=== PATIENT | female | born 1955 | race Caucasian/White ===

== ENCOUNTER 2019-12-14 16:38 | Inpatient (IN) | payer MEDICAID ==
[~2019-12-14] VITALS: Ht 160 cm; Wt 56.8 kg
--- NOTE | 2019-12-14 16:51 | NUR ---
PT SITTING IN WR VISITING WITH S/O. SPEAKING FULL SENTENCES, DENIES CP, NAD NOTED
[2019-12-14] MEDS ORDERED: LASIX40 MG PO (16:53)
[2019-12-14] MEDS ORDERED: CHRONULAC30 ML PO (16:53)
[2019-12-14] MEDS ORDERED: MAG-OX 400 MG400 MG PO (16:59)
[2019-12-14] MEDS ORDERED: K-DUR20 MEQ PO (16:59)
[2019-12-14] MEDS ORDERED: PROTONIX40 MG PO (17:00)
[2019-12-14] MEDS ORDERED: OMEPRAZOLE20 M1 PO (17:00)
[2019-12-14] MEDS ORDERED: ALDACTONE100 MG PO (17:00)
[2019-12-14 17:34] LABS: APTT 36.2 SECONDS (22.8-39.4); CALC OSMOLALITY 271 mosm/kg (275-300); CALCIUM 8.2 mg/dL (8.5-10.1); CHLORIDE - SERUM 104 mmol/L (98-107); CREATININE - SERUM 1.1 mg/dL (0.6-1.3); GLUCOSE 130 mg/dL (74-106); INR 1.38 (0.85-1.17); POTASSIUM - SERUM 3.7 mmol/L (3.5-5.1); PROTIME 16.9 SECONDS (11.6-15.0); SODIUM 136 mmol/L (136-145); UREA NITROGEN 7 mg/dL (7-18); eGFR NON AFRICAN AMERICAN 53 mL/min (90-120)
[2019-12-14 17:38] LABS: BASOPHILS 0.5 % (0-2); EOSINOPHILS 1.6 % (0-7); IMMATURE GRANULOCYTES 0.2 % (0-5); LYMPHOCYTES 23.6 % (15-50); MCH 24.1 pg (26.0-34.0); MCV 77.7 fL (80.0-100.0); MEAN PLATELET VOLUME 8.8 fL (7.4-10.4); MONOCYTES 11.3 % (2-11); NEUTROPHILS 62.8 % (40-80); PLATELET COUNT 99 10x3/uL (130-400); RBC 3.73 10x6/uL (4.00-5.40); RDW 18.4 % (11.5-14.5); WBC 4.3 10x3/uL (4.8-10.8)
[2019-12-14 17:52] LABS: ALBUMIN 2.9 g/dL (3.4-5.0); ALKALINE PHOSPHATASE 125 U/L (30-120); ALT (SGPT) 16 U/L (10-68); CKMB 2.5 U/L (0.0-3.6); CREATINE KINASE 87 UL (21-215); PRO BNP 389 pg/mL (0-125); PROTEIN - SERUM 6.8 g/dL (6.4-8.2); TROPONIN-I < 0.017 ng/mL (0.000-0.060)
[2019-12-14 18:30] LABS: PLATELET ESTIMATE DECREASED
[2019-12-14 22:09] LABS: % SATURATION 8 % (15-55); IRON 20 ug/dl (35-150); TOTAL IRON BIND CAPACITY 247 ug/dl (260-445); UNSAT IRON BIND CAPACITY 227 ug/dl (150-375)
[2019-12-15] VITALS (18 sets, daily range): BP systolic 109–134; BP diastolic 48–78; Ht 160 cm; Wt 56.8 kg
[2019-12-15 07:02] LABS: BASOPHILS 0.7 % (0-2); EOSINOPHILS 3.3 % (0-7); HEMATOCRIT 24.7 % (36.0-48.0); HEMOGLOBIN 7.6 g/dL (12-16); LYMPHOCYTES 30.5 % (15-50); MCH 23.8 pg (26.0-34.0); MCHC 30.8 g/dL (31.0-37.0); MCV 77.2 fL (80.0-100.0); MEAN PLATELET VOLUME 8.8 fL (7.4-10.4); MONOCYTES 15.4 % (2-11); NEUTROPHILS 50.1 % (40-80); PLATELET COUNT 88 10x3/uL (130-400); RDW 18.5 % (11.5-14.5)
[2019-12-15 07:06] LABS: WBC 3.1 10x3/uL (4.8-10.8)
[2019-12-15 07:10] LABS: ALBUMIN 2.2 g/dL (3.4-5.0); ALKALINE PHOSPHATASE 94 U/L (30-120); ALT (SGPT) 13 U/L (10-68); BILIRUBIN - TOTAL 1.34 mg/dL (0.2-1.3); CALCIUM 8.1 mg/dL (8.5-10.1); CARBON DIOXIDE 25.3 mmol/L (21.0-32.0); CHLORIDE - SERUM 109 mmol/L (98-107); POTASSIUM - SERUM 3.7 mmol/L (3.5-5.1); PROTEIN - SERUM 5.4 g/dL (6.4-8.2); SODIUM 140 mmol/L (136-145); UREA NITROGEN 7 mg/dL (7-18)
[2019-12-15 07:13] LABS: CALC OSMOLALITY 274 mosm/kg (275-300); CREATININE - SERUM 0.8 mg/dL (0.6-1.3); GLUCOSE 66 mg/dL (74-106); eGFR NON AFRICAN AMERICAN 77 mL/min (90-120)
--- NOTE | 2019-12-15 07:30 | NUR ---
PATIENT RESTING ON RIGHT SIDE. SO IN ROOM. CL IN REACH. NO NEEDS AT THIS TIME. WCTM
--- NOTE | 2019-12-15 09:20 | NUR ---
PATIENT BACK FROM THORACENTESIS. 2200 ML OF FLUID OFF. 100 MCG OF FENTANYL GIVEN. DRESSING RIGHT MID FLANK CDI. VS STABLE. CL IN REACH. WCTM
--- NOTE | 2019-12-15 10:59 | NUR ---
PATIENT SITTING UP IN BED. NO NEEDS AT THIS TIME. TALKING ON PHONE. TM
[2019-12-15 13:47] LABS: EOS BF 1 %; MACROPHAGES BF 49 %; MESOTHELIALS BF 8 %; NEUT - BF 23 %
[2019-12-15 14:31] LABS: BILIRUBIN NEGATIVE (NEGATIVE); GLUCOSE NEGATIVE (NEGATIVE); KETONE NEGATIVE (NEGATIVE); NITRITE NEGATIVE (NEGATIVE); UROBILINOGEN NORMAL (NORMAL)
--- NOTE | 2019-12-15 20:00 | NUR ---
PATIENT RESTING IN BED WATCHING TV. NO S/S OF ACUTE DISTRESS. NO C/O AT THIS TIME. PATEINT HAS BLOOD RUNNING IN LEFT HAND IV. PATIENT HAS 2L OF O2 NASAL CANNULA THAT PATIENT WEARS PRN. PATIENT DOESN'T HAVE TELEMETRY BUT IS ON THE WAIT LIST. PATIENT USES THE BEDSIDE COMMODE. CALL LIGHT WITHIN REACH. WILL CONTINUE TO MONITOR.
--- NOTE | 2019-12-15 20:20 | NUR ---
PATIENT HAS UNRINATED. PATIENT REPORTS NO NAUSEA. PATIENT STATES "I'M A LITTLE SORE, BUT I KNOW I WAS JUST CUT ON." PATIENT VITALS ARE STABLE. PATIENT IV WAS TAKEN OUT, CATHETER TIP INTACT. CALL LIGHT WITHIN REACH. WILL CONTINUE TO MONITOR.
--- NOTE | 2019-12-15 23:50 | NUR ---
PATIENT BLOOD FINISHED. VITALS STABLE. NO S/S OF REACTION. IV FLSUHED AND SALINE LOC. CALL LIGHT WITHIN REACH. WILL CONTINUE TO MONITOR.
[2019-12-16] VITALS (11 sets, daily range): BP systolic 95–118; BP diastolic 45–70
--- NOTE | 2019-12-16 02:59 | NUR ---
I have reviewed this patient and I concur with the Shift Assessment completed by the Licensed Practical Nurse today this shift.
[2019-12-16 06:17] LABS: BASOPHILS 0.5 % (0-2); LYMPHOCYTES 29.1 % (15-50); MCH 25.5 pg (26.0-34.0); MCHC 32.7 g/dL (31.0-37.0); MCV 77.9 fL (80.0-100.0); MONOCYTES 13.2 % (2-11); NEUTROPHILS 55.2 % (40-80); PLATELET COUNT 77 10x3/uL (130-400); RDW 17.5 % (11.5-14.5)
[2019-12-16 06:19] LABS: HEMATOCRIT 33.9 % (36.0-48.0); HEMOGLOBIN 11.1 g/dL (12-16); RBC 4.35 10x6/uL (4.00-5.40)
[2019-12-16 06:27] LABS: INR 1.45 (0.85-1.17); PROTIME 17.5 SECONDS (11.6-15.0)
[2019-12-16 06:40] LABS: ALBUMIN 2.3 g/dL (3.4-5.0); ANION GAP 9.9 mmol/L (8-16); BILIRUBIN - TOTAL 2.3 mg/dL (0.2-1.3); CALCIUM 7.8 mg/dL (8.5-10.1); CARBON DIOXIDE 25.7 mmol/L (21.0-32.0); CREATININE - SERUM 0.9 mg/dL (0.6-1.3); MAGNESIUM - SERUM 1.5 mg/dL (1.8-2.4); POTASSIUM - SERUM 3.6 mmol/L (3.5-5.1); PROTEIN - SERUM 5.6 g/dL (6.4-8.2)
[2019-12-16 09:55] LABS: PLATELET ESTIMATE DECREASED
[2019-12-16 10:09] LABS: ROULEAUX OCC
[2019-12-16 15:11] LABS: ACID FAST SMEAR Negative (()); AFB SPECIMEN PROCESSING Not Indicated (())
--- NOTE | 2019-12-16 15:56 | NUR ---
PATIENT IS RESTING.SHE IS WITHOUT DISTRESS.MONITOR. AT BEDSIDE.
[2019-12-16 16:09] LABS: FUNGUS STAIN Final report (())
--- NOTE | 2019-12-16 20:00 | NUR ---
PATIENT RESTING IN BED TALKING ON THE PHONE. NO S/S OF ACUTE DISTRESS. NO C/O AT THIS TIME. PATIENT HAS 2L OF O2 NASAL CANNULA PRN. PATIENT HAS IV IN LEFT HAND, SALINE LOC. IV IS PATENT WITHOUT REDNESS, SWELLING, OR TENDERNESS. PATIENT HAD A THORENCENTESIS YESTERDAY AND A PARACENTESIS TODAY. PATIENT IS UP ADLIB TO THE BATHROOM. CALL LIGHT WITHIN REACH. WILL CONTINUE TO MONITOR.
[2019-12-17] VITALS: BP 114/55
--- NOTE | 2019-12-17 03:52 | NUR ---
I have reviewed this patient and I concur with the Shift Assessment completed by the Licensed Practical Nurse today this shift.
[2019-12-17 04:00] VITALS: BP 97/57
[2019-12-17 05:27] LABS: BASOPHILS 0.2 % (0-2); EOSINOPHILS 1.7 % (0-7); LYMPHOCYTES 18.6 % (15-50); MCH 25.3 pg (26.0-34.0); MCHC 32.4 g/dL (31.0-37.0); MCV 78.3 fL (80.0-100.0); MEAN PLATELET VOLUME 9.3 fL (7.4-10.4); MONOCYTES 14.6 % (2-11); NEUTROPHILS 64.9 % (40-80); PLATELET COUNT 84 10x3/uL (130-400); RBC 4.34 10x6/uL (4.00-5.40); RDW 18.2 % (11.5-14.5)
[2019-12-17 05:46] LABS: INR 1.42 (0.85-1.17); PROTIME 17.2 SECONDS (11.6-15.0)
[2019-12-17 05:55] LABS: ALBUMIN 2.9 g/dL (3.4-5.0); ANION GAP 9.7 mmol/L (8-16); BILIRUBIN - TOTAL 1.84 mg/dL (0.2-1.3); CALCIUM 8.2 mg/dL (8.5-10.1); CARBON DIOXIDE 29.5 mmol/L (21.0-32.0); CREATININE - SERUM 0.9 mg/dL (0.6-1.3); MAGNESIUM - SERUM 1.3 mg/dL (1.8-2.4); POTASSIUM - SERUM 3.2 mmol/L (3.5-5.1); PROTEIN - SERUM 6.1 g/dL (6.4-8.2)
--- NOTE | 2019-12-17 08:00 | NUR ---
ASSESSMENT PER FLOW SHEET. PATIENT IS WITHOUT DISTRESS.CALL LIGHT IN REACH
[2019-12-17 08:45] VITALS: BP 89/55
[2019-12-17] MEDS ORDERED: NICODERM CQ1 EAC3 TRANSDERM (10:38)
[2019-12-17] MEDS ORDERED: COMBIVENT RESPIM4 GM INH (11:15)
--- NOTE | 2019-12-17 12:15 | NUR ---
IV DCD WITH CATH TIP INTACT. DISCHARGE INSTRUCTIONS,STATES UNDERSTANDING.
--- NOTE | 2019-12-17 12:32 | NUR ---
LEFT UNIT VIA WHEELCHAIR FOR TRANSPORT HOME
== END 2019-12-17 12:32 | disposition home or self-care (01) | DRG 433 ==
LOC: D.ER 16:38 → D.MS 20:11
PROVIDERS: Family Medicine; Internal Medicine Pulmonary Disease; Radiology Diagnostic Radiology; ADMIT Family Medicine; ATTEND Family Medicine
PROC: 0W9G3ZZ Drainage of Peritoneal Cavity, Percutaneous Approach (ICD-10-PCS; principal; 2019-12-16 10:00)
DX: K70.31 Alcoholic cirrhosis of liver with ascites (principal); J91.8 Pleural effusion in other conditions classified elsewhere; D61.818 Other pancytopenia; J44.1 Chronic obstructive pulmonary disease with (acute) exacerbation; J98.11 Atelectasis; F17.213 Nicotine dependence, cigarettes, with withdrawal; J94.8 Other specified pleural conditions; I10 Essential (primary) hypertension; K21.9 Gastro-esophageal reflux disease without esophagitis; J30.9 Allergic rhinitis, unspecified; D50.9 Iron deficiency anemia, unspecified; K42.9 Umbilical hernia without obstruction or gangrene

== ENCOUNTER → 2019-12-26 08:40 | Outpatient (CLI) | payer MEDICAID ==
[2019-12-15 12:48] VITALS: BMI 22.5
[~2019-12-26 08:40] MED LIST: ALDACTONE100 MG PO; CHRONULAC30 ML PO; COMBIVENT RESPIM4 GM INH; K-DUR20 MEQ PO; LASIX40 MG PO; MAG-OX 400 MG400 MG PO; NICODERM CQ1 EAC3 TRANSDERM; OMEPRAZOLE20 M1 PO; PROTONIX40 MG PO
[2019-12-26 09:33] LABS: ALBUMIN 3.1 g/dL (3.4-5.0); ANION GAP 9.5 mmol/L (8-16); BILIRUBIN - TOTAL 1.08 mg/dL (0.2-1.3); CARBON DIOXIDE 27.4 mmol/L (21.0-32.0); CREATININE - SERUM 0.9 mg/dL (0.6-1.3); POTASSIUM - SERUM 3.9 mmol/L (3.5-5.1); PROTEIN - SERUM 7.4 g/dL (6.4-8.2)
[2019-12-26 09:44] LABS: BASOPHILS 0.7 % (0-2); EOSINOPHILS 3.2 % (0-7); HEMATOCRIT 37.9 % (36.0-48.0); HEMOGLOBIN 12.2 g/dL (12-16); LYMPHOCYTES 27.3 % (15-50); MCH 25.6 pg (26.0-34.0); MCHC 32.2 g/dL (31.0-37.0); MCV 79.5 fL (80.0-100.0); MEAN PLATELET VOLUME 9.3 fL (7.4-10.4); MONOCYTES 15.2 % (2-11); NEUTROPHILS 53.6 % (40-80); RBC 4.77 10x6/uL (4.00-5.40); RDW 20.5 % (11.5-14.5); WBC 4.1 10x3/uL (4.8-10.8)
[2019-12-26 09:45] LABS: PLATELET COUNT 136 10x3/uL (130-400)
[2019-12-26 09:47] LABS: INR 1.15 (0.85-1.17); PROTIME 14.6 SECONDS (11.6-15.0)
== END | disposition home or self-care (01) ==
LOC: D.LAB 08:40
PROVIDERS: ATTEND Radiology Diagnostic Radiology
DX: K74.60 Unspecified cirrhosis of liver (principal)

== ENCOUNTER 2020-01-27 09:58 | Day surgery (SDC) | payer MEDICAID ==
[~2020-01-27] VITALS: Ht 160 cm; Wt 50.8 kg
[2020-01-27] MEDS ORDERED: FLUTICASONE PRO16 GM NASAL (10:47)
[2020-01-27 10:53] VITALS: BP 117/70; Ht 160 cm; Wt 50.8 kg
[2020-01-27 11:01] LABS: APTT 32.5 SECONDS (22.8-39.4); BASOPHILS 0.5 % (0-2); EOSINOPHILS 1.6 % (0-7); HEMATOCRIT 33.8 % (36.0-48.0); INR 1.28 (0.85-1.17); LYMPHOCYTES 27.9 % (15-50); MCH 27.1 pg (26.0-34.0); MCHC 32.5 g/dL (31.0-37.0); MCV 83.3 fL (80.0-100.0); MONOCYTES 12.4 % (2-11); NEUTROPHILS 57.6 % (40-80); PLATELET COUNT 124 10x3/uL (130-400); PROTIME 15.9 SECONDS (11.6-15.0); RBC 4.06 10x6/uL (4.00-5.40); RDW 22.8 % (11.5-14.5); WBC 3.8 10x3/uL (4.8-10.8)
[2020-01-27 11:04] LABS: CALC OSMOLALITY 275 mosm/kg (275-300); CALCIUM 8.6 mg/dL (8.5-10.1); CARBON DIOXIDE 26.5 mmol/L (21.0-32.0); CHLORIDE - SERUM 105 mmol/L (98-107); CREATININE - SERUM 0.8 mg/dL (0.6-1.3); GLUCOSE 87 mg/dL (74-106); POTASSIUM - SERUM 4.2 mmol/L (3.5-5.1); SODIUM 139 mmol/L (136-145); UREA NITROGEN 11 mg/dL (7-18); eGFR NON AFRICAN AMERICAN 77 mL/min (90-120)
[2020-01-27 12:59] LABS: ALBUMIN 3.1 g/dL (3.4-5.0); BILIRUBIN - TOTAL 0.97 mg/dL (0.2-1.3)
--- NOTE | 2020-01-27 13:51 | NUR ---
1335 IV REMOVED AND PRESSURE HELD
== END 2020-01-27 13:43 | disposition home or self-care (01) ==
LOC: D.SP 09:58
PROVIDERS: ATTEND Radiology Diagnostic Radiology
DX: K74.60 Unspecified cirrhosis of liver (principal); R18.8 Other ascites; Z53.8 Procedure and treatment not carried out for other reasons

== ENCOUNTER 2020-02-23 11:40 | Inpatient (IN) | payer MEDICAID ==
[~2020-02-23] VITALS: Ht 160 cm; Wt 49.9 kg
[~2020-02-23 11:40] MED LIST changes: +FLUTICASONE PRO16 GM NASAL
[2020-02-23 12:29] LABS: BASOPHILS 0.4 % (0-2); EOSINOPHILS 0.2 % (0-7); HEMATOCRIT 31.5 % (36.0-48.0); HEMOGLOBIN 10.5 g/dL (12-16); IMMATURE GRANULOCYTES 0.2 % (0-5); LYMPHOCYTES 18.2 % (15-50); MCH 27.9 pg (26.0-34.0); MCHC 33.3 g/dL (31.0-37.0); MCV 83.6 fL (80.0-100.0); MEAN PLATELET VOLUME 8.6 fL (7.4-10.4); MONOCYTES 9.9 % (2-11); NEUTROPHILS 71.1 % (40-80); RBC 3.77 10x6/uL (4.00-5.40); RDW 18.5 % (11.5-14.5); WBC 4.7 10x3/uL (4.8-10.8)
[2020-02-23 12:30] LABS: PLATELET COUNT 87 10x3/uL (130-400)
[2020-02-23 12:33] LABS: CALC OSMOLALITY 274 mosm/kg (275-300); CALCIUM 8.3 mg/dL (8.5-10.1); CHLORIDE - SERUM 104 mmol/L (98-107); CREATININE - SERUM 0.8 mg/dL (0.6-1.3); GLUCOSE 92 mg/dL (74-106); POTASSIUM - SERUM 3.7 mmol/L (3.5-5.1); SODIUM 138 mmol/L (136-145); UREA NITROGEN 9 mg/dL (7-18); eGFR NON AFRICAN AMERICAN 77 mL/min (90-120)
[2020-02-23 12:39] LABS: APTT 36.5 SECONDS (22.8-39.4); INR 1.3 (0.85-1.17); PROTIME 16.1 SECONDS (11.6-15.0)
[2020-02-23 12:49] LABS: ALBUMIN 3.3 g/dL (3.4-5.0); ALKALINE PHOSPHATASE 129 U/L (30-120); ALT (SGPT) 37 U/L (10-68); BILIRUBIN - TOTAL 2.13 mg/dL (0.2-1.3); CKMB 1.2 U/L (0.0-3.6); CREATINE KINASE 346 UL (21-215); PRO BNP 548 pg/mL (0-125); PROTEIN - SERUM 7.2 g/dL (6.4-8.2); TROPONIN-I < 0.017 ng/mL (0.000-0.060)
--- NOTE | 2020-02-23 13:00 | NUR ---
REPORT TAKEN FROM EVER GONZALEZ
[2020-02-23 13:04] VITALS: BP 142/75
[2020-02-23 13:26] LABS: PLATELET ESTIMATE DECREASED
[2020-02-23 15:07] VITALS: BP 139/77
--- NOTE | 2020-02-23 16:12 | NUR ---
XRAY AT BEDSIDE
[2020-02-23 17:32] LABS: % SATURATION 26 % (15-55); IRON 101 ug/dl (35-150); TOTAL IRON BIND CAPACITY 381 ug/dl (260-445); UNSAT IRON BIND CAPACITY 280 ug/dl (150-375)
[2020-02-23 17:44] VITALS: BP 137/70
[2020-02-23 20:00] VITALS: BP 137/79
--- NOTE | 2020-02-23 20:00 | NUR ---
RESTING IN BED, ALERT AND ORIENTIATED, BRUSED AREA NOTED TO LEFT FACE, DENIES PAIN, REPORTS FELL AT HOME, REPORTS COUGH WITH BROWN SPUTUM, SEE ASSESSEMENT, CALL LIGHT IN REACH
[2020-02-24] VITALS (13 sets, daily range): BP systolic 89–147; BP diastolic 47–77; Ht 160 cm; Wt 49.9 kg
[2020-02-24 04:54] LABS: BASOPHILS 0.6 % (0-2); EOSINOPHILS 2.2 % (0-7); HEMATOCRIT 27.1 % (36.0-48.0); HEMOGLOBIN 9.1 g/dL (12-16); LYMPHOCYTES 36.9 % (15-50); MCH 28.3 pg (26.0-34.0); MCHC 33.6 g/dL (31.0-37.0); MCV 84.2 fL (80.0-100.0); MEAN PLATELET VOLUME 8.5 fL (7.4-10.4); MONOCYTES 11.7 % (2-11); NEUTROPHILS 48.6 % (40-80); RBC 3.22 10x6/uL (4.00-5.40); WBC 3.6 10x3/uL (4.8-10.8)
[2020-02-24 04:56] LABS: PLATELET COUNT 65 10x3/uL (130-400)
[2020-02-24 05:13] LABS: ALBUMIN 2.9 g/dL (3.4-5.0); ANION GAP 10.7 mmol/L (8-16); BILIRUBIN - TOTAL 2.1 mg/dL (0.2-1.3); CALCIUM 7.8 mg/dL (8.5-10.1); CARBON DIOXIDE 27.3 mmol/L (21.0-32.0); CREATININE - SERUM 0.9 mg/dL (0.6-1.3); PROTEIN - SERUM 6.3 g/dL (6.4-8.2)
[2020-02-24 07:12] LABS: BILIRUBIN NEGATIVE (NEGATIVE); KETONE NEGATIVE (NEGATIVE); NITRITE NEGATIVE (NEGATIVE); UROBILINOGEN NORMAL (NORMAL)
[2020-02-24 07:43] LABS: UDS - AMPHET NEGATIVE QUAL (NEGATIVE); UDS - BARB NEGATIVE QUAL (NEGATIVE); UDS - BENZO NEGATIVE QUAL (NEGATIVE); UDS - COCAINE NEGATIVE QUAL (NEGATIVE); UDS - OPIATE NEGATIVE QUAL (NEGATIVE); UDS - PCP NEGATIVE QUAL (NEGATIVE); UDS - THC NEGATIVE QUAL (NEGATIVE)
[2020-02-24 13:42] LABS: INR 1.27 (0.85-1.17); PROTIME 15.8 SECONDS (11.6-15.0)
[2020-02-24 17:49] LABS: PROTEIN - BODY FLUID 2.3 G/DL
[2020-02-24 17:50] LABS: PROTEIN - BODY FLUID 1.9 G/DL
[2020-02-24 20:32] LABS: MACROPHAGES BF 43 %; MESOTHELIALS BF 12 %; NEUT - BF 11 %
--- NOTE | 2020-02-24 22:00 | NUR ---
A&0 X 4, AMBULATES INDEPENDENTLY. BRUISING TO RIGHT SIDE OF FACE AND LEFT SIDE OF RIBS. DENIES PAIN, NO NEEDS VOICED. EKG PERFORMED, CTM.
[2020-02-25 03:09] VITALS: BP 113/48
--- NOTE | 2020-02-25 03:50 | NUR ---
I have reviewed this patient and I concur with the Shift Assessment completed by the Licensed Practical Nurse today this shift.
[2020-02-25 04:00] VITALS: BP 92/42
[2020-02-25 05:18] LABS: BASOPHILS 0.2 % (0-2); EOSINOPHILS 1.2 % (0-7); HEMATOCRIT 26.4 % (36.0-48.0); HEMOGLOBIN 8.9 g/dL (12-16); LYMPHOCYTES 28.8 % (15-50); MCH 28.3 pg (26.0-34.0); MCHC 33.7 g/dL (31.0-37.0); MCV 83.8 fL (80.0-100.0); MEAN PLATELET VOLUME 8.6 fL (7.4-10.4); MONOCYTES 9.7 % (2-11); NEUTROPHILS 60.1 % (40-80); PLATELET COUNT 65 10x3/uL (130-400); RBC 3.15 10x6/uL (4.00-5.40); RDW 18.5 % (11.5-14.5); WBC 4.2 10x3/uL (4.8-10.8)
[2020-02-25 05:40] LABS: PLATELET ESTIMATE DECREASED
[2020-02-25 05:54] LABS: % SATURATION 13 % (15-55); IRON 40 ug/dl (35-150); TOTAL IRON BIND CAPACITY 287 ug/dl (260-445); UNSAT IRON BIND CAPACITY 247 ug/dl (150-375)
[2020-02-25 06:11] LABS: ALBUMIN 3.1 g/dL (3.4-5.0); ALKALINE PHOSPHATASE 103 U/L (30-120); ALT (SGPT) 28 U/L (10-68); BILIRUBIN - TOTAL 1.87 mg/dL (0.2-1.3); CALC OSMOLALITY 269 mosm/kg (275-300); CALCIUM 8.3 mg/dL (8.5-10.1); CARBON DIOXIDE 25.6 mmol/L (21.0-32.0); CHLORIDE - SERUM 101 mmol/L (98-107); CREATININE - SERUM 0.8 mg/dL (0.6-1.3); FERRITIN 58 ng/mL (3-244); GLUCOSE 76 mg/dL (74-106); POTASSIUM - SERUM 3.3 mmol/L (3.5-5.1); PROTEIN - SERUM 6.3 g/dL (6.4-8.2); SODIUM 136 mmol/L (136-145); UREA NITROGEN 9 mg/dL (7-18); eGFR NON AFRICAN AMERICAN 77 mL/min (90-120)
--- NOTE | 2020-02-25 08:03 | NUR ---
RESTING IN BED, FAMILY IN ROOM, NO DISTRESS NOTED, IV INFUSING, TELE IN PLACE, CONT TO MONITOR RESP STATUS
[2020-02-25 10:26] VITALS: BP 104/38
--- NOTE | 2020-02-25 12:35 | NUR ---
REVIEWED DC ORDERS WITH PT, VOICED NO CONCERNS, IV REMOVED, TIP INTACT
--- NOTE | 2020-02-25 14:08 | MORECARE ---
CASE MANAGEMENT DISCHARGE SUMMARY PATIENT: AUSTIN AJIN UNIT: [id number] ADM DATE: 02/23/20 AGE: 64 : 57 SEX: F ROOM/BED: D.2206 AUTHOR: NANETTE VILLAFANA PHYSICIAN: REFERRING PHYSICIAN: MICHELLE SPRINGER MD DATE OF SERVICE: 02/25/20 Discharge Plan Patient Name: AUSTIN JAIN [facility] [facility] 1955 Planned Disposition: Anticipated Discharge Date: Discharge Date: Expected LOS: Initial Reviewer: [email or web address] Initial Review Date: 02/23/2020 Generated: 02/25/20 3:07 pm DCPIA - Discharge Planning Initial Assessment Updated by [email or web address]: Rosi Boswell on 02/25/20 2:06 pm * Is the patient Alert and Oriented? Yes * How many steps to enter\exit or inside your home? 3/0 * [facility] * Pharmacy [facility] * Preadmission Environment Home with Family * ADLs Independent * Equipment Cane Walker * List name and contact numbers for known caregivers / representatives who currently or will assist patient after discharge: SHAHBAZ RODRIGUEZ [phone] * Verbal permission to speak to the caregivers and representatives has been obtained from the patient. Yes * Community resources currently utilized None * Additional services required to return to the preadmission environment? No * Can the patient safely return to the preadmission environment? Yes * Has this patient been hospitalized within the prior 30 days at any hospital? No Patient Name: AUSTIN JAIN Page [phone] at 1408 All edits/amendments must be made on the electronic document DICTATION DATE: 02/25/20 140 LIDDER: ROB 02/25/201406 RPT#: [id number] DC DATE: STATUS: ADM IN [place] [address] [place] [address] END OF REPORT
--- NOTE | 2020-02-25 14:14 | MORECARE ---
CASE MANAGEMENT DISCHARGE SUMMARY PATIENT: AUSTIN JAIN UNIT: [id number] ADM DATE: 02/23/20 AGE: 64 : 57 SEX: F ROOM/BED: D.2206 AUTHOR: LEDY,DOC PHYSICIAN: REFERRING PHYSICIAN: MICHELLE SPRINGER MD DATE OF SERVICE: 02/25/20 Discharge Plan Patient Name: AUSTIN JAIN Facility: [facility]:[place] : 1955 Planned Disposition: Anticipated Discharge Date: Discharge Date: Expected LOS: Initial Reviewer: [email or web address] Initial Review Date: 02/23/2020 Generated: 02/25/20 3:14 pm Comments DCP- Discharge Planning Updated by [email or web address]: Rosi Boswell on 02/25/20 1:[address] Patient Name: AUSTIN JAIN Admission Status: ER Accout number: [id number] Admission Date: 02-23-2020 : 1955 Admission Diagnosis: Attending: MICHELLE DE LA ROSA Current LOS: 2 Anticipated DC Date: Planned Disposition: Primary Insurance: MEDICAID [place] Discharge Planning Comments: CM met with patient to complete initial dc planning assessment. CM educated patient on the CM role and verbal consent given by patient to complete assessment. CM verified patient's address, phone number, and emergency contact phone numbers. Patient lives at home with her significant other Ricco [phone] who is at bedside. At discharge patient plans to return home and feels this is a safe discharge. CM discussed availability of home health, rehab services, and medical equipment. Patient denied known discharge needs at this time. Transportation provider at discharge will be Ricco. CM will continue to follow and will assist as needed with dc plans/needs. Medical Insurance Claims Processor: Rosi Boswell DCPIA - Discharge Planning Initial Assessment Updated by [email or web address]: Rosi Boswell on 02/25/20 2:06 pm * Is the patient Alert and Oriented? Yes * How many steps to enter\exit or inside your home? 3/0 * [facility] * Pharmacy [place] * Preadmission Environment Home with Family * ADLs Independent * Equipment Cane Walker * List name and contact numbers for known caregivers / representatives who currently or will assist patient after discharge: RICCO RODRIGUEZ [phone] * Verbal permission to speak to the caregivers and representatives has been obtained from the patient. Yes * Community resources currently utilized None * Additional services required to return to the preadmission environment? No * Can the patient safely return to the preadmission environment? Yes * Has this patient been hospitalized within the prior 30 days at any hospital? No Last DP export: 02/25/20 1:07 pm Patient Name: AUSTIN JAIN Page [phone] at 1414 All edits/amendments must be made on the electronic document DICTATION DATE: 02/25/201413 NEEDLE SETTER: ROB 02/25/201413 RPT#: [id number] DC DATE: STATUS: ADM IN [facility] [address] [place] [address] END OF REPORT
[2020-02-25 14:48] VITALS: BP 103/50
== END 2020-02-25 17:29 | disposition home or self-care (01) | DRG 433 ==
LOC: D.ER 11:40 → D.MS 13:57
PROVIDERS: Emergency Medicine; Family Medicine; Radiology Diagnostic Radiology; ADMIT Family Medicine; ATTEND Family Medicine
PROC: 0W993ZZ Drainage of Right Pleural Cavity, Percutaneous Approach (ICD-10-PCS; principal; 2020-02-24)
PROC: 0W9G3ZZ Drainage of Peritoneal Cavity, Percutaneous Approach (ICD-10-PCS; 2020-02-24)
DX: K70.31 Alcoholic cirrhosis of liver with ascites (principal); J90 Pleural effusion, not elsewhere classified; F17.203 Nicotine dependence unspecified, with withdrawal; R55 Syncope and collapse; W19.XXXA Unspecified fall, initial encounter; I10 Essential (primary) hypertension; D64.9 Anemia, unspecified; K42.9 Umbilical hernia without obstruction or gangrene

== ENCOUNTER 2020-08-29 07:35 | Day surgery (SDC) | payer MEDICAID ==
[~2020-08-29] VITALS: Ht 160 cm; Wt 50.0 kg
[~2020-08-29 07:35] MED LIST changes: +BACTRIM DS TAB1 EAC1 PO; +NICODERM CQ1 EAC3 TOPICAL; +TYLENOL W/CODEI1 TAB PO
[2020-08-29 08:10] LABS: CALC OSMOLALITY 272 mosm/kg (275-300); CALCIUM 8.4 mg/dL (8.5-10.1); CARBON DIOXIDE 28.1 mmol/L (21.0-32.0); CHLORIDE - SERUM 104 mmol/L (98-107); CREATININE - SERUM 0.8 mg/dL (0.6-1.3); GLUCOSE 94 mg/dL (74-106); POTASSIUM - SERUM 3.2 mmol/L (3.5-5.1); SODIUM 138 mmol/L (136-145); UREA NITROGEN 5 mg/dL (7-18); eGFR NON AFRICAN AMERICAN 77 mL/min (90-120)
[2020-08-29 08:44] VITALS: BP 139/77; Ht 160 cm; Wt 50.0 kg
[2020-08-29 09:40] LABS: HEMATOCRIT 31.9 % (36.0-48.0); HEMOGLOBIN 10.2 g/dL (12-16); MCH 25.8 pg (26.0-34.0); MCV 80.6 fL (80.0-100.0); PLATELET COUNT 86 10x3/uL (130-400); RBC 3.96 10x6/uL (4.00-5.40); RDW 20.2 % (11.5-14.5); WBC 5.3 10x3/uL (4.8-10.8)
[2020-08-29 14:05] LABS: PLATELET ESTIMATE DECREASED
--- NOTE | 2020-08-29 16:04 | NUR ---
1400 IV REMOVED AND INSTRUCTIONS GIVEN.
== END 2020-08-29 14:30 | disposition home or self-care (01) ==
LOC: D.OPS 07:35
PROVIDERS: Anesthesiology; ATTEND Surgery
DX: Z12.11 Encounter for screening for malignant neoplasm of colon (principal); I10 Essential (primary) hypertension; K21.9 Gastro-esophageal reflux disease without esophagitis; L92.8 Other granulomatous disorders of the skin and subcutaneous tissue; F17.210 Nicotine dependence, cigarettes, uncomplicated

== ENCOUNTER 2020-09-04 11:27 | Day surgery (SDC) | payer MEDICAID ==
[~2020-09-04] VITALS: Ht 160 cm; Wt 46.8 kg
[2020-09-04 12:09] LABS: ALBUMIN 2.9 g/dL (3.4-5.0); ALKALINE PHOSPHATASE 120 U/L (30-120); ALT (SGPT) 17 U/L (10-68); BILIRUBIN - TOTAL 1.27 mg/dL (0.2-1.3); CALC OSMOLALITY 272 mosm/kg (275-300); CALCIUM 8.4 mg/dL (8.5-10.1); CARBON DIOXIDE 26.5 mmol/L (21.0-32.0); CHLORIDE - SERUM 106 mmol/L (98-107); CREATININE - SERUM 0.8 mg/dL (0.6-1.3); GLUCOSE 87 mg/dL (74-106); POTASSIUM - SERUM 3.4 mmol/L (3.5-5.1); PROTEIN - SERUM 7.1 g/dL (6.4-8.2); SODIUM 138 mmol/L (136-145); UREA NITROGEN 6 mg/dL (7-18); eGFR NON AFRICAN AMERICAN 77 mL/min (90-120)
[2020-09-04 12:28] LABS: APTT 25.7 SECONDS (22.8-39.4); INR 1.33 (0.85-1.17); PROTIME 15.3 SECONDS (11.6-15.0)
--- NOTE | 2020-09-04 12:43 | NUR ---
1238 PT HAS A POSITIVE HX FOR LIFETIME SUICIDE RISK. PT STATES HER ATTEMPT WAS 5 YEARS AGO AND SOUGHT PYSCHIATRIC HELP AT THAT TIME. SHE IS NO LONGER UNDER THE CARE OF A PYSCHIATRIST. PT DOES NOT WANT TO BE SEEN BY BEHAVIORAL HEALTH NURSE FOR FURTHER EVALUATION.
[2020-09-04 12:50] VITALS: BP 124/70; Ht 160 cm; Wt 46.8 kg
[2020-09-04 13:10] LABS: BASOPHILS 0.7 % (0-2); EOSINOPHILS 2.6 % (0-7); HEMATOCRIT 33.1 % (36.0-48.0); HEMOGLOBIN 10.6 g/dL (12-16); LYMPHOCYTE ABS# 0.81 10x3/uL (1.18-3.74); LYMPHOCYTES 30.3 % (15-50); MCV 81.1 fL (80.0-100.0); MEAN PLATELET VOLUME 9.6 fL (7.4-10.4); MONOCYTES 11.6 % (2-11); NEUTROPHIL ABS# 1.46 10x3/uL (1.56-6.13); NEUTROPHILS 54.8 % (40-80); PLATELET COUNT 98 10x3/uL (130-400); RBC 4.08 10x6/uL (4.00-5.40); RDW 20.6 % (11.5-14.5); WBC 2.7 10x3/uL (4.8-10.8)
--- NOTE | 2020-09-04 15:31 | NUR ---
1530 PORT CXR DONE.
--- NOTE | 2020-09-04 16:22 | NUR ---
1610 IV HAS BEEN DC'D WITH CATH INTACT. DC INSTS. GIVEN, VOICED UNDER STANDING, RELEASED IN WC.
== END 2020-09-04 16:10 | disposition home or self-care (01) ==
LOC: D.SP 11:27
PROVIDERS: ATTEND Radiology Diagnostic Radiology
DX: R18.8 Other ascites (principal); J94.8 Other specified pleural conditions; K76.6 Portal hypertension; K74.60 Unspecified cirrhosis of liver

== ENCOUNTER 2020-11-22 14:10 | Inpatient (IN) | payer MEDICAID ==
[~2020-11-22] VITALS: Ht 160 cm; Wt 55.8 kg
[2020-11-22 14:43] LABS: BASOPHILS 0.6 % (0-2); EOSINOPHILS 0.3 % (0-7); HEMATOCRIT 28.6 % (36.0-48.0); HEMOGLOBIN 8.7 g/dL (12-16); LYMPHOCYTES 16.2 % (15-50); MCH 24.1 pg (26.0-34.0); MCHC 30.4 g/dL (31.0-37.0); MCV 79.3 fL (80.0-100.0); MEAN PLATELET VOLUME 7.9 fL (7.4-10.4); MONOCYTES 9.4 % (2-11); NEUTROPHILS 73.5 % (40-80); PLATELET COUNT 83 10x3/uL (130-400); RDW 21.6 % (11.5-14.5); WBC 4.1 10x3/uL (4.8-10.8)
[2020-11-22 15:18] LABS: ALBUMIN 2.8 g/dL (3.4-5.0); ALKALINE PHOSPHATASE 120 U/L (30-120); ALT (SGPT) 15 U/L (10-68); AMYLASE - SERUM 57 U/L (25-115); BILIRUBIN - TOTAL 1.34 mg/dL (0.2-1.3); CALC OSMOLALITY 278 mosm/kg (275-300); CARBON DIOXIDE 25.7 mmol/L (21.0-32.0); CHLORIDE - SERUM 105 mmol/L (98-107); CREATININE - SERUM 0.8 mg/dL (0.6-1.3); GLUCOSE 93 mg/dL (74-106); LIPASE 130 U/L (73-393); PROTEIN - SERUM 6.6 g/dL (6.4-8.2); SODIUM 141 mmol/L (136-145); TROPONIN-I < 0.017 ng/mL (0.000-0.060); UREA NITROGEN 8 mg/dL (7-18); eGFR NON AFRICAN AMERICAN 77 mL/min (90-120)
[2020-11-22 15:30] LABS: POTASSIUM - SERUM 2.8 mmol/L (3.5-5.1)
[2020-11-22 17:42] LABS: APTT 33.2 SECONDS (22.8-39.4); INR 1.37 (0.85-1.17); PROTIME 15.6 SECONDS (11.6-15.0)
[2020-11-22 20:27] VITALS: BP 149/45
[2020-11-22 21:01] VITALS: BP 127/67
[2020-11-23] VITALS (12 sets, daily range): BP systolic 107–139; BP diastolic 47–78; Ht 160 cm; Wt 55.8 kg
[2020-11-23 01:47] LABS: BILIRUBIN NEGATIVE (NEGATIVE); KETONE NEGATIVE (NEGATIVE); NITRITE NEGATIVE (NEGATIVE); UROBILINOGEN NORMAL mg/dL (< 2)
--- NOTE | 2020-11-23 04:24 | NUR ---
I have reviewed this patient and I concur with the Shift Assessment completed by the Licensed Practical Nurse today this shift.
[2020-11-23 05:56] LABS: BASOPHILS 0.8 % (0-2); EOSINOPHILS 1.7 % (0-7); HEMATOCRIT 24.3 % (36.0-48.0); HEMOGLOBIN 7.8 g/dL (12-16); LYMPHOCYTES 27.2 % (15-50); MCH 25.3 pg (26.0-34.0); MCV 79.2 fL (80.0-100.0); MEAN PLATELET VOLUME 7.9 fL (7.4-10.4); MONOCYTES 13.3 % (2-11); PLATELET COUNT 69 10x3/uL (130-400); RBC 3.07 10x6/uL (4.00-5.40); RDW 21.5 % (11.5-14.5); RETIC 2.16 % (0.45-2.28); WBC 3.2 10x3/uL (4.8-10.8)
[2020-11-23 06:37] LABS: % SATURATION 5 % (15-55); IRON 17 ug/dl (35-150); TOTAL IRON BIND CAPACITY 291 ug/dl (260-445); UNSAT IRON BIND CAPACITY 274 ug/dl (150-375)
[2020-11-23 06:50] LABS: ALBUMIN 2.4 g/dL (3.4-5.0); ALKALINE PHOSPHATASE 100 U/L (30-120); ALT (SGPT) 12 U/L (10-68); BILIRUBIN - TOTAL 1.04 mg/dL (0.2-1.3); CALC OSMOLALITY 275 mosm/kg (275-300); CALCIUM 7.5 mg/dL (8.5-10.1); CARBON DIOXIDE 25.3 mmol/L (21.0-32.0); CHLORIDE - SERUM 106 mmol/L (98-107); CREATININE - SERUM 0.7 mg/dL (0.6-1.3); FERRITIN 23 ng/mL (3-244); GLUCOSE 73 mg/dL (74-106); MAGNESIUM - SERUM 1.2 mg/dL (1.8-2.4); PRO BNP 484 pg/mL (0-125); PROTEIN - SERUM 5.8 g/dL (6.4-8.2); SODIUM 140 mmol/L (136-145); UREA NITROGEN 8 mg/dL (7-18); eGFR NON AFRICAN AMERICAN 90 mL/min (90-120)
[2020-11-23 07:35] LABS: POTASSIUM - SERUM 2.8 mmol/L (3.5-5.1)
[2020-11-23 07:44] LABS: APTT 34.2 SECONDS (22.8-39.4); INR 1.42 (0.85-1.17); PROTIME 16.1 SECONDS (11.6-15.0)
--- NOTE | 2020-11-23 08:56 | NUR ---
OUT OF ROOM TO CT GUIDED PARACENTESIS.
--- NOTE | 2020-11-23 10:00 | NUR ---
BACK FROM IR. RESTING COMFORTABLY. FREQUENT VITALS STARTED AT THIS TIME. DENIES FURTHER NEEDS AT THIS TIME.
--- NOTE | 2020-11-23 12:30 | NUR ---
HUNG IV POTASSIUM, REPORTS BURING. TURNED DOWN.
--- NOTE | 2020-11-23 13:04 | NUR ---
STATES, "IF YOU DON'T TURN THIS POTASSIUM OFF I WILL RIP IT OUT MY SELF." POTASSIUM HAS BEEN TURNED OFF DUE TO REFUSAL FROM PATIENT.
--- NOTE | 2020-11-23 13:49 | NUR ---
PRN MORPHINE FOR PAIN. RESTING UPRIGHT IN BED. AGREED TO RESTART IV POTASSIUM. DENIES FURTHER NEEDS AT THIS TIME. WILL CONTINUE POC.
--- NOTE | 2020-11-23 15:10 | NUR ---
HUNG BAG 2/2 OF IV POTASSIUM. TOLERATING WELL. DENIES ANY NEEDS. WILL CONTINUE POC.
--- NOTE | 2020-11-23 17:20 | NUR ---
HUNG IV MAGNESIUM BAG 1/2. RESTING COMFORTABLY IN BED. AIDE IN ROOM OBTAINING VITALS. DENIES ANY NEEDS AT THIS TIME. ADDITIONAL IV STARTED IN LOWER LEFT FOREARM 20 GAUGE. WILL CONTINUE POC.
--- NOTE | 2020-11-23 18:46 | NUR ---
WANTING TO LEAVE AMA, PAGE SENT TO JUAN JOSE MONTE APRN. WAITING FOR CALL BACK FOR [facility] TO GET AMA PAPERWORK.
== END 2020-11-23 20:10 | disposition left against medical advice (07) | DRG 433 ==
LOC: D.ER 14:10 → D.EDHOLD 18:32 → D.MS 18:32
PROVIDERS: Emergency Medicine; General Practice; ADMIT Emergency Medicine; ATTEND Emergency Medicine
PROC: 0W9G3ZZ Drainage of Peritoneal Cavity, Percutaneous Approach (ICD-10-PCS; principal; 2020-11-23 08:41)
PROC: 0W993ZZ Drainage of Right Pleural Cavity, Percutaneous Approach (ICD-10-PCS; 2020-11-23 08:41)
DX: K70.31 Alcoholic cirrhosis of liver with ascites (principal); J90 Pleural effusion, not elsewhere classified; D61.818 Other pancytopenia; E87.6 Hypokalemia; D50.9 Iron deficiency anemia, unspecified; I10 Essential (primary) hypertension; J44.9 Chronic obstructive pulmonary disease, unspecified; Z72.0 Tobacco use

== ENCOUNTER 2020-11-23 21:30 | Inpatient (IN) | payer MEDICAID ==
[~2020-11-23] VITALS: Ht 160 cm; Wt 55.9 kg
[2020-11-23 22:45] LABS: BASOPHILS 0 % (0-2); EOSINOPHILS 0 % (0-7); HEMATOCRIT 25.5 % (36.0-48.0); HEMOGLOBIN 8.2 g/dL (12-16); LYMPHOCYTES 4.4 % (15-50); MCH 25.3 pg (26.0-34.0); MCHC 32.2 g/dL (31.0-37.0); MCV 78.5 fL (80.0-100.0); MEAN PLATELET VOLUME 8.2 fL (7.4-10.4); MONOCYTES 5.4 % (2-11); NEUTROPHILS 90.2 % (40-80); PLATELET COUNT 66 10x3/uL (130-400); RBC 3.25 10x6/uL (4.00-5.40); RDW 21.2 % (11.5-14.5); WBC 6.3 10x3/uL (4.8-10.8)
[2020-11-23 23:00] VITALS: BP 100/55
[2020-11-23 23:02] LABS: CALCIUM 7.3 mg/dL (8.5-10.1); CHLORIDE - SERUM 101 mmol/L (98-107); POTASSIUM - SERUM 3.2 mmol/L (3.5-5.1); SODIUM 135 mmol/L (136-145); UREA NITROGEN 9 mg/dL (7-18); eGFR NON AFRICAN AMERICAN 59 mL/min (90-120)
[2020-11-23 23:04] LABS: CALC OSMOLALITY 271 mosm/kg (275-300); GLUCOSE 144 mg/dL (74-106)
[2020-11-23 23:10] LABS: ALKALINE PHOSPHATASE 91 U/L (30-120); BILIRUBIN - TOTAL 1.35 mg/dL (0.2-1.3)
[2020-11-23 23:13] LABS: ALT (SGPT) 16 U/L (10-68); AMYLASE - SERUM 41 U/L (25-115); LIPASE 76 U/L (73-393); TROPONIN-I < 0.017 ng/mL (0.000-0.060)
[2020-11-23 23:26] LABS: PLATELET ESTIMATE DECREASED
[2020-11-24] VITALS (7 sets, daily range): BP systolic 80–125; BP diastolic 43–79; Ht 160 cm; Wt 55.9 kg
--- NOTE | 2020-11-24 04:30 | NUR ---
PT RESTING IN BED WITH EYES OPEN. PT HAS NO NEEDS AT THE MOMENT WILL CONT WITH POC.
--- NOTE | 2020-11-24 04:39 | NUR ---
I have reviewed this patient and I concur with the Shift Assessment completed by the Licensed Practical Nurse today this shift.
[2020-11-24 06:43] LABS: BASOPHILS 0.3 % (0-2); EOSINOPHILS 0.1 % (0-7); HEMATOCRIT 23.6 % (36.0-48.0); HEMOGLOBIN 7.6 g/dL (12-16); MCH 25.2 pg (26.0-34.0); MCHC 32.1 g/dL (31.0-37.0); MCV 78.7 fL (80.0-100.0); MEAN PLATELET VOLUME 8.7 fL (7.4-10.4); MONOCYTES 7.4 % (2-11); NEUTROPHILS 82.2 % (40-80); PLATELET COUNT 61 10x3/uL (130-400); RBC 2.99 10x6/uL (4.00-5.40); RDW 21.7 % (11.5-14.5)
[2020-11-24 06:48] LABS: UDS - AMPHET NEGATIVE QUAL (NEGATIVE); UDS - BARB NEGATIVE QUAL (NEGATIVE); UDS - BENZO NEGATIVE QUAL (NEGATIVE); UDS - COCAINE NEGATIVE QUAL (NEGATIVE); UDS - OPIATE NEGATIVE QUAL (NEGATIVE); UDS - PCP NEGATIVE QUAL (NEGATIVE); UDS - THC NEGATIVE QUAL (NEGATIVE)
[2020-11-24 06:50] LABS: WBC 4.7 10x3/uL (4.8-10.8)
[2020-11-24 07:26] LABS: ALBUMIN 2.6 g/dL (3.4-5.0); ALKALINE PHOSPHATASE 83 U/L (30-120); ALT (SGPT) 18 U/L (10-68); BILIRUBIN - TOTAL 1.35 mg/dL (0.2-1.3); CALC OSMOLALITY 274 mosm/kg (275-300); CALCIUM 7.1 mg/dL (8.5-10.1); CARBON DIOXIDE 27.3 mmol/L (21.0-32.0); CHLORIDE - SERUM 105 mmol/L (98-107); CREATININE - SERUM 0.8 mg/dL (0.6-1.3); GLUCOSE 104 mg/dL (74-106); MAGNESIUM - SERUM 1.3 mg/dL (1.8-2.4); PHOSPHOROUS 2.8 mg/dL (2.5-4.9); POTASSIUM - SERUM 3.4 mmol/L (3.5-5.1); PROTEIN - SERUM 5.3 g/dL (6.4-8.2); SODIUM 138 mmol/L (136-145); UREA NITROGEN 9 mg/dL (7-18); eGFR NON AFRICAN AMERICAN 77 mL/min (90-120)
--- NOTE | 2020-11-24 09:22 | NUR ---
AAOX4 UPON ENTERING. MEDICATION GIVEN, NO DIFFICULTIES. RESTING COMFORTABLY IN BED. DENIES ANY NEEDS AT THIS TIME. BED IN LOWEST POSITION, BED RAILS X2, CALL LIGHT WITHIN REACH. WILL CONTINUE POC. ASSESSEMENT PERFORMED AT THIS TIME.
--- NOTE | 2020-11-24 09:32 | NUR ---
unclear consult from dr massey/ nurse tammie kimbrough put in on 11/24 for interventional radiology. cxr on 11/23 , paracentesis 11/23 w 6000mls removed, thoracentesis -1200ccs removed on 11/23. pt left AMA and returned . readmitted for abd pain/ascites ,critical potass, low MAG, and 1 unit of blood is the gameplan according to nurse Nikki. nurse Nikki said dr rodriguez commented pt is good on pulmonary standpt as of 11/24 am. interventional nurse Ruth will relay consult to dr east 11/24. not sure of why consulted .
--- NOTE | 2020-11-24 11:47 | NUR ---
UP IN BEDSIDE CHAIR. DENIES ANY NEEDS. WILL CONTINUE POC.
--- NOTE | 2020-11-24 13:12 | NUR ---
I have reviewed this patient and I concur with the Shift Assessment completed by the Licensed Practical Nurse today this shift.
--- NOTE | 2020-11-24 13:33 | NUR ---
REPLACING POTASSIUM AND MAGNESIUM PER PROTOCOL. DENIES NEEDS. WILL CONTINUE POC.
--- NOTE | 2020-11-24 16:45 | NUR ---
IV IRON STARTED, TOLERATING WELL. HELD LASIX FOR LOW BLOOD PRESSURE. SITING UPRIGHT IN BED. FAMILY AT BEDSIDE. DENIES ANY NEEDS AT THIS TIME. WILL CONTINUE POC.
--- NOTE | 2020-11-24 17:11 | NUR ---
RESTING IN BED. DENIES ANY NEEDS AT THIS TIME. WILL CONTINUE POC.
--- NOTE | 2020-11-24 19:00 | NUR ---
BEDSIDE REPORT RECEIVED AND CARE OF PT ASSUMED. PT LYING IN HIGH CHRISTIANSON'S POSITION VISITING WITH FAMILY MEMBER. IV TO RIGHT AC SALINE LOCKED.
--- NOTE | 2020-11-24 19:45 | NUR ---
MICHELET MONTE APN TO CLARIFY BLOOD TRANSFUSION ORDER. ORDER TO GIVE 2 UNITS OF PRBC'S TONIGHT.
--- NOTE | 2020-11-24 20:12 | NUR ---
STARTED 1ST UNIT OF PRBC'S. VITALS STABLE AND PT IS AFEBRILE.
--- NOTE | 2020-11-24 22:55 | NUR ---
1ST UNIT OF PRBC'S COMPLETE. VITALS REMAIN STABLE AND PT IS AFEBRILE.
--- NOTE | 2020-11-24 22:56 | NUR ---
PT SITTING UP IN BED EATING PIZZA THAT HER SON BROUGHT HER. NO OTHER NEEDS VOICED AT THIS TIME.
--- NOTE | 2020-11-24 23:50 | NUR ---
STARTED 2ND UNIT OF PRBC'S. VITALS STABLE AND PT IS AFEBRILE.
[2020-11-25 00:05] VITALS: BP 90/42
[2020-11-25 00:08] VITALS: BP 89/48
[2020-11-25 00:46] LABS: BILIRUBIN NEGATIVE (NEGATIVE); KETONE NEGATIVE (NEGATIVE); NITRITE NEGATIVE (NEGATIVE)
[2020-11-25 00:47] LABS: UROBILINOGEN 4 mg/dL (< 2)
--- NOTE | 2020-11-25 02:15 | NUR ---
2nd UNIT OF PRBC'S COMPLETE. PT RESTING QUIETLY WITH EYES CLOSED AND EASY RESPIRATIONS.
[2020-11-25 04:37] VITALS: BP 88/43
[2020-11-25 07:10] LABS: ALBUMIN 2.6 g/dL (3.4-5.0); ANION GAP 11.1 mmol/L (8-16); BASOPHILS 0.6 % (0-2); BILIRUBIN - TOTAL 1.37 mg/dL (0.2-1.3); CALCIUM 7.4 mg/dL (8.5-10.1); CARBON DIOXIDE 26.7 mmol/L (21.0-32.0); CREATININE - SERUM 0.9 mg/dL (0.6-1.3); EOSINOPHILS 1.5 % (0-7); LYMPHOCYTES 11.7 % (15-50); MAGNESIUM - SERUM 1.4 mg/dL (1.8-2.4); MCH 25.9 pg (26.0-34.0); MCHC 32.7 g/dL (31.0-37.0); MCV 79.2 fL (80.0-100.0); MEAN PLATELET VOLUME 8.4 fL (7.4-10.4); MONOCYTES 13.5 % (2-11); NEUTROPHILS 72.7 % (40-80); PLATELET COUNT 65 10x3/uL (130-400); POTASSIUM - SERUM 3.8 mmol/L (3.5-5.1); PROTEIN - SERUM 5.5 g/dL (6.4-8.2); RDW 19.5 % (11.5-14.5); WBC 5.2 10x3/uL (4.8-10.8)
[2020-11-25 07:24] LABS: HEMATOCRIT 29.6 % (36.0-48.0); HEMOGLOBIN 9.7 g/dL (12-16); RBC 3.74 10x6/uL (4.00-5.40)
[2020-11-25 07:25] LABS: PLATELET ESTIMATE DECREASED
--- NOTE | 2020-11-25 08:19 | NUR ---
ASSESSMENT PER FLOW SHEET. PATIENT IS WITHOUT DISTRESS. IV TENDER TO RIGHT AC,SOME REDNESS NOTED TO SITE.LOW BP 88/43 THIS AM. DECLINES NICOTINE PATCH.CALL LIGHT USE INSTRUCTED.
[2020-11-25 09:11] VITALS: BP 92/33
[2020-11-25 12:51] VITALS: BP 88/33
[2020-11-25 16:32] VITALS: BP 91/47
--- NOTE | 2020-11-25 17:32 | NUR ---
PAGE TO JUAN JOSE LYNCH.. LASIX AND LOW BP. WAITING RECREATION FACILITIES SUPERVISOR BACK
--- NOTE | 2020-11-25 19:06 | NUR ---
RE CHECK BP 120/58, MANUAL.
--- NOTE | 2020-11-25 19:39 | NUR ---
PATIENT RESTING IN BED WITH NO S/S OF DISTRESS AND DENIES NEEDS AT THIS TIME. BED IN LOWEST POSITION AND CALL LIGHT IN REACH. ENCOURAGED PATIENT TO CALL WITH NEEDS.
--- NOTE | 2020-11-25 21:36 | NUR ---
ADMINISTERED MEDS PER ORDERS. PATIENT AMANDO WELL. ENCOURAGED TO CALL WITH NEEDS.
[2020-11-26 05:10] VITALS: BP 98/58
[2020-11-26 06:50] LABS: BASOPHILS 0.6 % (0-2); EOSINOPHILS 1.3 % (0-7); HEMATOCRIT 31.3 % (36.0-48.0); HEMOGLOBIN 10.4 g/dL (12-16); LYMPHOCYTES 20.6 % (15-50); MCH 25.8 pg (26.0-34.0); MCHC 33.1 g/dL (31.0-37.0); MCV 78.1 fL (80.0-100.0); MEAN PLATELET VOLUME 8.9 fL (7.4-10.4); MONOCYTES 14.2 % (2-11); NEUTROPHILS 63.3 % (40-80); PLATELET COUNT 75 10x3/uL (130-400); RBC 4.01 10x6/uL (4.00-5.40); RDW 19.6 % (11.5-14.5)
[2020-11-26 07:08] LABS: ALBUMIN 2.8 g/dL (3.4-5.0); ALKALINE PHOSPHATASE 92 U/L (30-120); CALCIUM 8.1 mg/dL (8.5-10.1); CARBON DIOXIDE 27.8 mmol/L (21.0-32.0); CHLORIDE - SERUM 105 mmol/L (98-107); CREATININE - SERUM 0.8 mg/dL (0.6-1.3); MAGNESIUM - SERUM 1.4 mg/dL (1.8-2.4); POTASSIUM - SERUM 3.5 mmol/L (3.5-5.1); PROTEIN - SERUM 5.9 g/dL (6.4-8.2); SODIUM 139 mmol/L (136-145); UREA NITROGEN 10 mg/dL (7-18); eGFR NON AFRICAN AMERICAN 77 mL/min (90-120)
[2020-11-26 07:11] LABS: ALT (SGPT) 19 U/L (10-68); CALC OSMOLALITY 274 mosm/kg (275-300); GLUCOSE 65 mg/dL (74-106)
[2020-11-26 07:23] LABS: WBC 3.8 10x3/uL (4.8-10.8)
[2020-11-26 08:00] VITALS: BP 87/57
--- NOTE | 2020-11-26 10:30 | NUR ---
COVERED PATIENTS IV AND CHANGED BED. PATIENT UP TO SHOWER. NO COMPLAINTS. CALL LIGHT WITHIN REACH.
[2020-11-26 10:36] LABS: INR 1.32 (0.85-1.17); PROTIME 15.2 SECONDS (11.6-15.0)
[2020-11-26 12:11] VITALS: BP 93/38
[2020-11-26] MEDS ORDERED: NICODERM CQ1 EAC3 TRANSDERM (12:56)
[2020-11-26] MEDS ORDERED: ALDACTONE100 MG PO (12:57)
[2020-11-26] MEDS ORDERED: LASIX40 MG PO (12:57)
[2020-11-26] MEDS ORDERED: Xopenex 0.63 MG INH UPD (12:57)
[2020-11-26] MEDS ORDERED: CHRONULAC30 ML PO (12:57)
--- NOTE | 2020-11-26 14:00 | NUR ---
SPOKE WITH PATIENTS DAUGHTER IN LAW ABOUT DC. ANSWERED QUESTIONS. STATED SHE WILL HAVE MORE INFO ON HER DC SHEEETS. VERBALIZED UNDERSTANDING.
--- NOTE | 2020-11-26 15:37 | NUR ---
PATIENT RECIEVED DC INSTRUCTIONS. VERBALIZED UNDERSTANDING. NO QUESTIONS AT THIS TIME. IV REMOVED WITH CATH TIP INTACT. WAITING FOR TRANSPORTATION. CALL LIGHT WITHIN REACH.
--- NOTE | 2020-11-26 15:42 | NUR ---
PATIENT ESCORTED OUT OF HOSPITAL VIA WC WITH PERSONAL BELONINGS BY CHEMICAL PLANT MANAGER TO PRIVATE VEHICLE.
== END 2020-11-26 15:52 | disposition home or self-care (01) | DRG 433 ==
LOC: D.ER 21:30 → D.EDHOLD 23:34 → D.MS 23:34
PROVIDERS: Emergency Medicine; Family Medicine; ADMIT Family Medicine; ATTEND Family Medicine
DX: K70.31 Alcoholic cirrhosis of liver with ascites (principal); J90 Pleural effusion, not elsewhere classified; E87.1 Hypo-osmolality and hyponatremia; D61.818 Other pancytopenia; E87.6 Hypokalemia; D50.9 Iron deficiency anemia, unspecified; D69.6 Thrombocytopenia, unspecified; Z72.0 Tobacco use; J44.9 Chronic obstructive pulmonary disease, unspecified; I10 Essential (primary) hypertension; Z91.19 Patient's noncompliance with other medical treatment and regimen

== ENCOUNTER 2020-12-19 09:02 | Day surgery (SDC) | payer MEDICAID ==
[~2020-12-19] VITALS: Ht 160 cm; Wt 55.5 kg
[~2020-12-19 09:02] MED LIST changes: +Xopenex 0.63 MG INH UPD
[2020-12-19 09:30] LABS: EOSINOPHILS 1.7 % (0-7); HEMATOCRIT 38.9 % (36.0-48.0); HEMOGLOBIN 12.4 g/dL (12-16); LYMPHOCYTES 14.7 % (15-50); MCH 27.8 pg (26.0-34.0); MEAN PLATELET VOLUME 8.3 fL (7.4-10.4); MONOCYTES 10.6 % (2-11); RBC 4.47 10x6/uL (4.00-5.40); RDW 27.1 % (11.5-14.5); WBC 4.5 10x3/uL (4.8-10.8)
[2020-12-19 09:40] LABS: PLATELET COUNT 128 10x3/uL (130-400)
[2020-12-19 09:45] LABS: INR 1.25 (0.85-1.17); PROTIME 14.5 SECONDS (11.6-15.0)
[2020-12-19 09:46] LABS: APTT 33.6 SECONDS (22.8-39.4)
[2020-12-19 09:58] LABS: ALBUMIN 3.2 g/dL (3.4-5.0); ANION GAP 10.8 mmol/L (8-16); BILIRUBIN - TOTAL 1.21 mg/dL (0.2-1.3); CALCIUM 9.1 mg/dL (8.5-10.1); CARBON DIOXIDE 28.5 mmol/L (21.0-32.0); POTASSIUM - SERUM 4.3 mmol/L (3.5-5.1); PROTEIN - SERUM 7.5 g/dL (6.4-8.2)
[2020-12-19 10:36] VITALS: BP 109/62; Ht 160 cm; Wt 55.5 kg
--- NOTE | 2020-12-19 14:38 | NUR ---
1345 IV REMOVED AND INSTRUCTIONS GIVEN.
== END 2020-12-19 14:38 | disposition home or self-care (01) ==
LOC: D.RAD 09:02
PROVIDERS: ATTEND Radiology Diagnostic Radiology
DX: R18.8 Other ascites (principal); K74.60 Unspecified cirrhosis of liver